=== PATIENT | male | born 1950 | race Caucasian/White ===

== ENCOUNTER 2023-10-14 19:26 | Emergency (ER) | payer MEDICARE, SELFPAY ==
[2023-10-14 19:28] VITALS: BP 146/65; PULSE 67; RESP 16; TEMP 36.8; O2SAT 95; BMI 30.7
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
--- NOTE | 2023-10-14 20:20 | CT_ITS ---
INDICATION: Paresthesias EXAMINATION: CT SPINE - CT Spine Cervical W/O Contrast Injection COMPARISON: None. A radiation dose optimization technique was used for this scan. Findings: Serial CT axial images through the cervical spine, with coronal and sagittal reformatted series. BONES: Cervical straightening. No evidence of cervical spine fracture or subluxation. No concerning bony lesion or abnormal sclerosis to suggest lesion. DISCS/JOINTS: Multilevel bilateral moderate to severe neuroforaminal narrowing, left C2-C3, bilateral C3-C4, left C4-C5 and left C5-C6. SOFT TISSUES: Soft tissue structures are unremarkable. CT/Spine Cervical without Contras IMPRESSION: Cervical spine without evidence of acute fracture. Neuroforaminal narrowing. Electronically Signed: Alexis Hawkins MD at 21:55 EDT ,
--- NOTE | 2023-10-14 20:20 | CT_ITS ---
INDICATION: Paresthesias EXAMINATION: CT BRAIN - CT Head or Brain W/O Contrast Injection TECHNIQUE: Serial CT axial images were obtained of the head without intravenous contrast. A radiation dose optimization technique was used for this scan. COMPARISON: None. Findings: Serial CT axial images of the head without contrast. BRAIN PARENCHYMA: Diffuse periventricular hypoattenuation likely chronic white matter ischemic changes. Moderate diffuse volume loss. No evidence of intraparenchymal hemorrhage or hyperattenuating extra-axial fluid collection. VASCULAR STRUCTURES: Atherosclerotic vascular calcifications. BONES: Paranasal sinuses are clear. SCALP/REMAINING SOFT TISSUES: Unremarkable. ASPECTS Score for Acute Strokes, if applicable: 10 CT/Brain/Head without Contrast IMPRESSION: Age-related changes as above, without evidence of acute intracranial hemorrhage in this noncontrast head CT. Electronically Signed: Alexis Hawkins MD at 21:31 EDT ,
[2023-10-14 20:53] LABS: Absolute Lymphocyte Count 2.11 X10^3/uL (0.83-4.51); Absolute Neutrophil Count 5.2 X10^3/uL (2.0-7.7); Basophil# 0.05 X10^3/uL; Basophil% 0.6 % (0-1); Eosinophil# 0.31 X10^3/uL; Eosinophils% 3.7 % (0-5); Hemoglobin 14.5 g/dL (13.0-16.5); Lymphocyte # 2.11 X10^3/ul (0.83-4.51); Lymphocyte % 25.3 % (19-41); Mean Corpuscular Hgb 30.6 pg (27.0-32.0); Mean Corpuscular Volume 92.8 fL (80-94); Mean Platelet Vol. 9.6 fl (6.2-12.0); Monocyte# 0.67 X10^3/uL; NRBC Flagged by Analyzer 0 % (0-5); Neutrophil # 5.17 X10^3/uL (2.7-7.7); Neutrophil % 61.9 % (47-70); Platelet Count 180 K/mm3 (150-450); RBC Distribution Width CV 13.3 % (11.6-14.6); RBC Distribution Width SD 45.1 fl (35.1-43.9); Red Blood Count 4.74 M/mm3 (4.6-6.2); White Blood Count 8.4 K/mm3 (4.4-11.0)
[2023-10-14 21:25] LABS: Anion Gap 5 (5-15); BUN 27 mg/dL (7-18); BUN/Creat Ratio 23.7 RATIO (10-20); Chloride 107 mmol/L (98-107); Creatinine, Serum 1.14 mg/dL (0.70-1.30); EST Glomerular Filtration Rate 67 mL/min (>60); Est Glom Filt Rate - Afr Amer 81 mL/min (>60); Estimated Creatinine Clearance 72.69 ml/min; Glucose 110 mg/dL (74-106); Potassium 4.1 mmol/L (3.5-5.1); Sodium Level 139 mmol/L (136-145)
[2023-10-14 21:38] VITALS: BP 131/64; PULSE 51; RESP 17; O2SAT 96
[2023-10-14 22:42] VITALS: BP 136/70; PULSE 50; RESP 17; TEMP -13.2; TEMP 8.2; O2SAT 96
== END 2023-10-14 22:43 | disposition home or self-care (01) ==
PROVIDERS: Emergency Provider Emergency Medicine; PCP Physician Assistant; Visit Provider Emergency Medicine
DX: R20.2 Paresthesia of skin (principal); J44.9 Chronic obstructive pulmonary disease, unspecified; E11.9 Type 2 diabetes mellitus without complications; F17.210 Nicotine dependence, cigarettes, uncomplicated; Z79.51 Long term (current) use of inhaled steroids; Z79.899 Other long term (current) drug therapy; Z79.01 Long term (current) use of anticoagulants
CPT/HCPCS: 70450; 72125; 80048; 85025; 99282; A4216

== ENCOUNTER 2024-10-12 08:00 | Outpatient (RCR) | payer MEDICARE, SELFPAY ==
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
--- NOTE | 2024-10-12 08:46 | HP.PTDCSUM ---
Discharge Summary D/C summary: It has been my pleasure to treat SIENNA RINALDI referred by Angelic Barajas, COMMODITIES MANAGER, with the diagnosis of Unsteady gait for a total of 5 visit(s). Discharge Date: 10/12/24 Please see the following information for a summary of their discharge status. Subjective Subjective: We are going thee right way. Tolerating prednisone right now. Getting more steady and doing HEP. Too sore to do gym right now. Will do in gym in [place] and no time for more therapy. Wants to be done. Pain joints: Pain Intensity (Out of 10): 8 Overall Improvement % Improvement: 30 Objective Objective/Function: Balance is testing better today. pt feels like he is improving slowly and just needs to continue on his own. C/o R knee pain and says he cannot get up off the floor but carlyn did two weeks ago it just took a long time. Has to leave early today. Goals Goal 1:: I appropriate gym b ased core, UE, LE strength and balance(wt shift and vest) ex to limti future problems. Goal Progress: home, knows gym. Goal 2:: Pt feel 75% tonja rin overall mobility Goal Progress: 30% Goal 3:: FGA Goal Progress: Goal Met Goal 4:: up of floor on own with UE support Goal Progress: knees hurt.not progressin Plan Plan: d/c D/C Information Discharge Comments: Pt plans to cotninue on his own in [place] via HEP d/c sentence: If there are questions or concerns regarding this patient's physical therapy, please feel free to call me at [phone]. Thank you for the referral of this patient. Sincerely, Frederick Martinez, DPT, OCS, CSCS Balance/Gait/Functional tests Balance/Special Test Scores Functional Gait Assessment Score: 24 % Disability: 20.0000 CATSIB Score (Max score 120 seconds): 95 Lower Extremity Functional Score: 42 Improvement % Improvement: 30
== END 2024-10-12 11:22 | disposition home or self-care (01) ==
LOC: PT 08:00
PROVIDERS: PCP Clinical Nurse Specialist Adult Health; Referring Provider Clinical Nurse Specialist Adult Health; Visit Provider Clinical Nurse Specialist Adult Health
DX: R26.81 Unsteadiness on feet (principal)
CPT/HCPCS: 97110; 97161; 97164